=== PATIENT | male | born 1970 | race Hispanic/Latino ===

== ENCOUNTER 2022-09-03 02:03 | Emergency (ER) | payer BC ==
[~2022-09-03] VITALS: Ht 165.1 cm; Wt 91.2 kg
[~2022-09-03 02:03] MED LIST: HYDR-4068 PO; IBUP-2077 PO
[2022-09-03] MEDS ORDERED: ONDANSETRON ODT 4MG TAB SL ONE (02:30)
[2022-09-03] MEDS ORDERED: HYDROMORPHONE 1 MG INJ IM ONE (02:30)
[2022-09-03 03:44] LABS: BASOPHILS % (AUTO) 0.3 % (0.0-5.0); EOSINOPHILS % (AUTO) 1.4 % (0.0-8.0); HEMATOCRIT 43.5 % (42-54); LYMPHOCYTES % (AUTO) 19.2 % (21.0-51.0); MEAN CORPUSCULAR HEMOGLOBIN 30.1 pg (27.0-33.0); MEAN CORPUSCULAR HGB CONC 34.7 g/dL (32.0-36.0); MEAN CORPUSCULAR VOLUME 86.8 fL (79-99); MONOCYTES % (AUTO) 10.3 % (3.0-13.0); NEUTROPHILS % (AUTO) 68.4 % (40.0-77.0); PLATELET COUNT (AUTO) 310 K/uL (130-400); RED BLOOD CELL COUNT(AUTO) 5.01 MIL/uL (4.50-6.20); RED CELL DISTRIBUTION WIDTH 13.2 % (11.0-15.5)
[2022-09-03 03:57] LABS: CREATININE 0.7 mg/dL (0.5-1.5); POTASSIUM 4.5 mmol/L (3.5-5.1)
[2022-09-03] MEDS ORDERED: HYDROMORPHONE 1 MG INJ IVP ONE ×2 (04:00→05:00)
[2022-09-03 04:02] LABS: ALBUMIN 4.3 g/dL (3.5-5.0); TOTAL PROTEIN, SERUM 8.5 g/dL (6.0-8.3)
[2022-09-03] MEDS ORDERED: OXYC-38 PO (04:49)
[2022-09-03] MEDS ORDERED: NAPR-1180 PO (04:49)
[2022-09-03 04:55] VITALS: BP 133/74
[2022-09-04] MEDS ORDERED: GABA-533 PO (12:43)
== END 2022-09-03 05:20 | disposition home or self-care (01) ==
LOC: EDH 02:03
DX: S22.41XA Multiple fractures of ribs, right side, initial encounter for closed fracture (principal); Z79.1 Long term (current) use of non-steroidal anti-inflammatories (NSAID); W19.XXXA Unspecified fall, initial encounter; Y93.89 Activity, other specified; Y92.89 Other specified places as the place of occurrence of the external cause; Y99.8 Other external cause status
CPT/HCPCS: 99284; 96374; 71250; 80053; 85025; 36415; 71101; 96372; 96376; J1170 ×3

== ENCOUNTER 2022-09-04 09:07 | Observation (INO) | payer BC ==
[~2022-09-04] VITALS: Ht 165.1 cm; Wt 88.5 kg
[~2022-09-04 09:07] MED LIST changes: +NAPR-1180 PO; +OXYC-38 PO
[2022-09-04] MEDS ORDERED: MORPHINE 4 MG SYG IVP ONE (12:00)
[2022-09-04] MEDS ORDERED: ONDANSETRON 4MG INJ IVP ONE (12:00)
[2022-09-04] MEDS ORDERED: GABA-533 PO (12:43)
[2022-09-04 13:11] VITALS: BP 138/76
== END 2022-09-04 12:38 | disposition left against medical advice (07) ==
LOC: EDH 09:07 → EDHIP 11:57 → EDH 13:15
PROVIDERS: ADMIT Surgery; ATTEND Surgery
DX: S22.41XA Multiple fractures of ribs, right side, initial encounter for closed fracture (principal); S27.0XXA Traumatic pneumothorax, initial encounter; J98.11 Atelectasis; Z53.29 Procedure and treatment not carried out because of patient's decision for other reasons; W11.XXXA Fall on and from ladder, initial encounter; Y93.89 Activity, other specified; Y92.89 Other specified places as the place of occurrence of the external cause
CPT/HCPCS: 99291; 96374; 71250; 96375; 73560; G0378; J2405; J2270